=== PATIENT | male | born 1965 | race African-American/Black ===

== ENCOUNTER 2021-04-05 14:18 | Emergency (ER) | payer BC ==
[~2021-04-05] VITALS: Ht 180.3 cm; Wt 93.0 kg
[2021-04-05 14:21] VITALS: BP 147/92
[2021-04-05] MEDS ORDERED: ACETAMINOPHEN 325MG TABLET PO STA (14:47)
[2021-04-05] MEDS ORDERED: FAMOTIDINE 20MG TABLET PO ONE (15:00)
[2021-04-05] MEDS ORDERED: NITROGLYCERIN 0.4MG TABLET SL SL PRN (15:00)
[2021-04-05] MEDS ORDERED: VISCOUS LIDOCAINE 2% 15 ML UDC PO STA (15:54)
[2021-04-05] MEDS ORDERED: MAGNESIUM/ALUMINUM HYDROXIDE/SIMETHICONE 30ML UDC PO STA (15:54)
[2021-04-05 16:08] LABS: BASOPHILS % 0.7 % (0.0-2.0); EOSINOPHILS % 1.2 % (0.0-5.0); HEMATOCRIT. 43.8 % (42.0-52.0); HEMOGLOBIN. 14.8 g/dL (14.0-18.0); LYMPHOCYTES % 32.9 % (20.0-50.0); MEAN CORPUSCULAR HEMOGLOBIN 27.9 pg (28.0-32.0); MEAN CORPUSCULAR VOLUME 82.5 fL (80.0-94.0); MEAN PLATELET VOLUME 7.3 fl (7.4-10.4); MONOCYTES % 8.4 % (2.0-8.0); NEUTROPHILS % 56.8 % (40.0-76.0); PLATELET 336 x1000/uL (130-400); RED BLOOD CELL COUNT 5.31 mill/uL (4.7-6.1); RED CELL DISTRIBUTION WIDTH 15.3 % (11.6-14.6)
[2021-04-05 16:15] LABS: CHLORIDE 109 mEq/L (98-107)
== END 2021-04-05 17:07 | disposition home or self-care (01) ==
LOC: ER 14:22
DX: R07.89 Other chest pain (principal); I10 Essential (primary) hypertension
CPT/HCPCS: 36415; 71045; 80053; 83880; 84484; 85025; 85379; 93005; 99285